=== PATIENT | male | born 1950 | race Caucasian/White ===

== ENCOUNTER 2019-04-18 09:38 | Emergency (ER) | payer MEDICARE ==
[~2019-04-18] VITALS: Ht 177.8 cm; Wt 62.9 kg
--- NOTE | 2019-04-18 12:28 | NUR ---
PER DR MACKAY PLACED PT ON LEFT SIDE WITH PEROXIDE IN HIS EAR
--- NOTE | 2019-04-18 12:34 | NUR ---
CALLED LAB LET THEM KNOW THAT THERE IS NOW AN ORDER FOR U/A AND TO PLEASE RUN URINE
[2019-04-18 12:45] LABS: CLARITY,URINE CLEAR (Clear); COLOR,URINE YELLOW (Yellow); GLUCOSE, URINE NEGATIVE (Neg); KETONES,URINE TRACE mg/dl (Neg); LEUKOCYTE ESTERASE ,URINE TRACE (Neg); NITRITES, URINE NEGATIVE (Neg); OCCULT BLOOD,URINE TRACE-INTACT (Neg); PROTEIN,URINE NEGATIVE (Neg); UROBILINOGEN,URINE 0.2 E.U/dL (0.2-1.0)
[2019-04-18 12:46] LABS: UA COLLECTION TYPE CLN CATCH MIDSTREAM
[2019-04-18 12:54] LABS: RBC,URINE 0-2 /HPF (0-2)
[2019-04-18 12:56] LABS: BACTERIA,URINE FEW /HPF (Neg); MUCUS STRANDS NONE SEEN /LPF (Neg); SQUAMOUS EPITHELIAL CELL,UR FEW /LPF (FEW)
--- NOTE | 2019-04-18 12:56 | NUR ---
PER DR MACKAY. PLACED PT ON RT SIDE WITH PEROXIDE IN LEFT EAR
[2019-04-18] MEDS ORDERED: CEPH500C5 PO (13:05)
[2019-04-18] MEDS ORDERED: CIPR10DR EACH EAR (13:05)
[2019-04-18 13:26] VITALS: BP 118/65
== END 2019-04-18 13:28 | disposition home or self-care (01) ==
LOC: ER 09:39
DX: H61.23 Impacted cerumen, bilateral (principal); H60.91 Unspecified otitis externa, right ear; N39.0 Urinary tract infection, site not specified; Z79.2 Long term (current) use of antibiotics
CPT/HCPCS: 81001; 87088; 99283